=== PATIENT | female | born 1990 | race Caucasian/White ===

== ENCOUNTER 2018-07-28 12:21 | Emergency (ER) | payer OTHER ==
[2018-07-28 13:02] VITALS: BP 121/76
--- NOTE | 2018-07-28 13:25 | UC ---
UC General HPI - HPI Summary HPI Summary: pt c/o urinary frequency, urgency and hesitation x 1 weeks. also "discomfort" but not burning. took a pyridium and once Friday with temporary relief. no fever, flank or abdominal pain. denies risk / concern for pelvic infection and has no vaginal discharge or lesions. - History of Current Complaint Chief Complaint: UCGU Stated Complaint: URINARY Time Seen by Provider: 07/28/18 13:19 Hx Obtained From: Patient Hx Last Menstrual Period: 06/30/18 Timing: Constant Pain Intensity: 0 - Allergy/Home Medications Allergies/Adverse Reactions: Allergies Allergy/AdvReac Type Severity Reaction Status Date / Time tuberculin,PPD,multi-puncture Allergy Hives Verified 05/03/18 08:44 wheat Allergy GI Upset Verified 05/03/18 08:44 Home Medications: Home Medications Phenazopyridine TAB* [Pyridium 100 mg TAB*] 1 tab PO BID 07/28/18 [History Confirmed 07/28/18] Sertraline HCl [Zoloft] 1 tab PO DAILY 07/28/18 [History Confirmed 07/28/18] PMH/Surg Hx/FS Hx/Imm Hx Previously Healthy: Yes Psychological History: Depression - Surgical History Surgical History: None - Family History Known Family History: Positive: Hypertension - Social History Alcohol Use: Occasionally Substance Use Type: None Smoking Status (MU): Never Smoked Tobacco Review of Systems All Other Systems Reviewed And Are Negative: Yes Constitutional: Negative: Fever Gastrointestinal: Negative: Abdominal Pain Genitourinary: Positive: Dysuria, Hematuria, Frequency, Urgency. Negative: Vaginal/Penile Burning, Vaginal/Penile Itching, Vaginal/Penile Discharge, Ulceration/Lesion Physical Exam Triage Information Reviewed: Yes Appearance: Well-Appearing Vital Signs: Initial Vital Signs Temp 97.3 F 07/28/18 12:53 Pulse 65 07/28/18 12:53 Resp 18 07/28/18 12:53 BP 121/76 07/28/18 12:53 Pulse Ox 100 07/28/18 12:53 Vital Signs Reviewed: Yes Neck: Positive: Supple Respiratory: Positive: Lungs clear Cardiovascular: Positive: RRR Abdomen Description: Positive: Nontender, No Organomegaly, Soft. Negative: CVA Tenderness (R), CVA Tenderness (L), Distended, Guarding Bowel Sounds: Positive: Present Musculoskeletal: Positive: ROM Intact Neurological: Positive: Alert Psychological: Positive: Age Appropriate Behavior Skin Exam: Normal Diagnostics - Laboratory Lab Results: u/a=trace ketones, 2+ leukocytes with culture pending. Course/Dx - Diagnoses Provider Diagnosis: Dysuria Discharge - Sign-Out/Discharge Documenting (check all that apply): Patient Departure All imaging exams completed and their final reports reviewed: No Studies - Discharge Plan Condition: Stable Disposition: HOME Prescriptions: Cephalexin CAP* [Keflex CAP*] 500 mg PO BID 7 Days #14 cap Patient Education Materials: Dysuria (ED) Referrals: Frankie Gonzalez MD [Primary Care Provider] - 7 Days - Billing Disposition and Condition Condition: STABLE Disposition: Home
== END 2018-07-28 13:44 | disposition home or self-care (01) ==
LOC: UCCORT 12:21
DX: R30.0 Dysuria (principal)
CPT/HCPCS: 81003; 87086; 99212; G0463